=== PATIENT | female | born 1930 | race Caucasian/White ===

== ENCOUNTER → 2018-09-30 | Outpatient (CLI) | payer OTHER ==
[~2018-09-30] MED LIST: ASPIR 8181 MG PO; COZAAR 25 MG TA25 M1 PO; HYDROCHLOROTHIA25 M2 PO; K-DUR 20 MEQ T20 MEQ PO; KLOR-CON 1010 MEQ PO; LIPITOR 20 MG T20 M1 PO; TOPROL XL100 MG PO
--- NOTE | 2018-09-30 14:56 | 2DMMODE ---
[facility] [place] [address] 2 D/M-MODE ECHOCARDIOGRAM Name: CALLUM MARIN Room #: PRE [facility]#: [id number] ������������� Admission: ������������� Attend Phys: Austin Rogel, Discharge: ��� ������������� ��� Date of : 32 Date of Service: 09/30/18 1456 �� Report #: [id number] �������� ��������������������������������������������[id number] THIS REPORT FOR: //name// APPROVED REPORT Study performed: 09/30/2018 14:17:39 EXAM: Comprehensive 2D, Doppler, and color-flow Echocardiogram Patient Location: Out-Patient Status: routine BSA: 1.84 HR: 93 bpm BP: 120/80 mmHg Rhythm: Atrial Fibrillation Other Information Study Quality: Good Indications Congestive Heart Failure Hx: Afib, HTN, HLP. 2D Dimensions RVDd: 33.06 mm IVSd: 13.23 (7-11mm) LVOT Diam: 20.03 (18-24mm) LVDd: 45.33 mm PWd: 13.20 (7-11mm) Ascending Ao: 30.32 (22-36mm) LVDs: 26.32 (25-40mm) Aortic Root: 32.11 mm Volumes Left Atrial Volume (Systole) Single Plane 4CH: 73.58 mL Single Plane 2CH: 72.27 mL LA ESV Index: 41.00 mL/m2 Aortic Valve AoV Peak Gage.: 2.10 m/s AO Peak Gr.: 17.56 mmHg AO Mean Gr.: 10.06 mmHg AO V2 Mean: 1.50 m/s AO V2 VTI: 43.57 cm Mitral Valve MV Decel. Time: 174.77 ms [facility] [email or web address] [address] 2 D/M-MODE ECHOCARDIOGRAM Name: CALLUM MARIN Room #: PRE [facility]#: [id number] ������������� Admission: ������������� Attend Phys: Austin Rogel, Discharge: ��� ������������� ��� Date of : 32 Date of Service: 09/30/18 1456 �� Report #: [id number] �������� ��������������������������������������������[id number] MV E Max Gage.: 1.13 m/s Pulmonary Valve PV Peak Gage.: 0.83 m/s PV Peak Gr.: 2.76 mmHg Tricuspid Valve TR Peak Gage.: 2.61 m/s RAP Estimate: 10.00 mmHg TR Peak Gr.: 27.50 mmHg PA Pressure: 38.00 mmHg Left Ventricle The left ventricle is normal size. There is normal LV segmental wall motion. Mild concentric left ventricular hypertrophy. Left ventricular systolic function is normal. LVEF is 60-65%. This study is not technically sufficient to allow evaluation of the LV diastolic function due to atrial fibrillation. Right Ventricle The right ventricle is normal size. The right ventricular systolic function is normal. Atria Left atrium is moderately dilated. Right atrium is moderately dilated. Aortic Valve Aortic valve is modertely calcified. No aortic regurgitation is present. There is mild valvular aortic stenosis. Calculated aortic valve area is 1.2 cm2 with maximum pressure gradient of 18 mmHg and mean pressure gradient of 10 mmHg. Mitral Valve The mitral valve is normal in structure. Mild mitral annular calcification. Mild mitral regurgitation. No evidence of mitral valve stenosis. Tricuspid Valve The tricuspid valve is normal in structure. Moderate tricuspid regurgitation. Estimated PAP is 35-40mmHg. Pulmonic Valve The pulmonary valve is normal in structure. Mild pulmonic regurgitation. Great Vessels The aortic root is normal in size. The ascending aorta is normal in [facility] [address] [place] [address] 2 D/M-MODE ECHOCARDIOGRAM Name: CALLUM MARIN Haley Room #: [facility]#: [id number] ������������� Admission: ������������� Attend Phys: Austin Rogel, Discharge: ��� ������������� ��� Date of : 32 Date of Service: 09/30/18 1456 �� Report #: [id number] �������� ��������������������������������������������[id number] size. IVC is normal in size and collapses <50% with inspiration. Pericardium There is no pericardial effusion. <Conclusion> The left ventricle is normal size. LVEF is 60-65%. Left atrium is moderately dilated. Right atrium is moderately dilated. The mitral valve is normal in structure. Mild mitral annular calcification. Mild mitral regurgitation. The tricuspid valve is normal in structure. Moderate tricuspid regurgitation. Estimated PAP is 35-40mmHg. The pulmonary valve is normal in structure. Mild pulmonic regurgitation. There is no pericardial effusion. ��������������������������������������������� <ELECTRONICALLY SIGNED> ���������������������������������������� By: Manuel Horton MD ��������������������������������������������� 09/30/18 1456 1456 1456 Manuel Horton MD /INF
== END ==
LOC: CV 11:30
DX: I08.8 Other rheumatic multiple valve diseases (principal); I48.91 Unspecified atrial fibrillation; I10 Essential (primary) hypertension; E78.5 Hyperlipidemia, unspecified

== ENCOUNTER 2019-12-07 11:43 | Emergency (ER) | payer OTHER ==
[~2019-12-07] VITALS: Ht 160 cm; Wt 83.2 kg
[2019-12-07 12:06] LABS: ABSOLUTE NEUTROPHILS 4.1 thou/uL (1.4-8.2); BASOPHILS 0.7 % (0.0-2.0); EOSINOPHILS 0.6 % (0.0-3.0); HEMOGLOBIN 13.2 gm/dL (12.0-15.0); LYMPHOCYTES 20.6 % (24.0-44.0); MCH 32.9 pg (26.0-34.0); MCHC 32.9 g/dL (28.0-37.0); MCV 99.8 fL (80.0-100.0); MONOCYTES 8.1 % (1.0-8.0); PLATELET COUNT 190 thou/uL (150-400); RBC 4.01 mil/uL (4.20-5.00); RDW 14.5 % (10.5-14.5); WBC 5.9 thou/uL (4.0-11.0)
[2019-12-07 12:17] LABS: ANION GAP 8 mmol/L (7-16); BUN 28 mg/dL (7-18); CALCIUM 8.7 mg/dL (8.5-10.1); CHLORIDE 107 mmol/L (98-107); CO2 28 mmol/L (21-32); CREATININE 1.2 mg/dL (0.6-1.0); GLUCOSE 126 mg/dL (74-106); POTASSIUM 3.5 mmol/L (3.5-5.1); SODIUM 143 mmol/L (136-145)
[2019-12-07 12:25] LABS: ALBUMIN 3.3 g/dL (3.4-5.0); SGOT 37 U/L (15-37); SGPT 60 U/L (30-65); TOTAL BILIRUBIN 0.6 mg/dL (0.2-1.0); TOTAL PROTEIN 6.8 g/dL (6.4-8.2); TROPONIN-I <0.06 ng/mL (<0.06)
[2019-12-07 13:22] VITALS: BP 117/77
--- NOTE | 2019-12-08 07:56 | EKG ---
[facility] [place] [address] ELECTROCARDIOGRAM REPORT Name: CALLUM MRAIN [id number] Admission: 12/07/19 Attend Phys: Discharge: 12/07/19 Date of : 32 Report #: [id number] THIS REPORT FOR: cc: Austin Rogel MD, Neal A. MD Lundgren, Craig H. 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[employer]: : 1930 Requested By: Jessie Meredith Order Number: [id number] MD: Zachariah Buchanan Measurements Intervals [place] Rate: 89 P: MS: QRS: -7 QRSD: 86 T: 207 QT: 428 QTc: 521 Interpretive Statements Atrial fibrillation Nonspecific T abnormalities Prolonged QT interval Compared to ECG 12/28/2017 10:48:17 T-wave abnormality now present Prolonged QT interval now present Sinus rhythm no longer present Electronically Signed On 12-08-2019 7:56:03 CDT by Zachariah Buchanan [email or web address] <ELECTRONICALLY SIGNED> By: Zachariah Buchanan MD, [facility] 12/08/19 [id number] Zachariah Buchanan MD, [facility] /EPI
== END 2019-12-07 13:22 | disposition home or self-care (01) ==
LOC: ER 11:43
PROVIDERS: Physician Assistant
DX: R07.89 Other chest pain (principal); I10 Essential (primary) hypertension; E78.5 Hyperlipidemia, unspecified; Z79.82 Long term (current) use of aspirin; Z79.899 Other long term (current) drug therapy; Z88.2 Allergy status to sulfonamides; Z88.0 Allergy status to penicillin

== ENCOUNTER → 2019-12-08 | Outpatient (CLI) | payer OTHER | LOC: SJCVCIMAG 13:38 | PROVIDERS: ATTEND Internal Medicine Cardiovascular Disease | DX: I48.91 Unspecified atrial fibrillation (principal); I10 Essential (primary) hypertension; R60.0 Localized edema; E78.5 Hyperlipidemia, unspecified; Z87.891 Personal history of nicotine dependence; Z79.899 Other long term (current) drug therapy; Z88.0 Allergy status to penicillin; Z88.2 Allergy status to sulfonamides; Z79.01 Long term (current) use of anticoagulants ==

== ENCOUNTER → 2020-01-10 | Outpatient (CLI) | payer OTHER | LOC: SJCVC 13:31 | PROVIDERS: ATTEND Internal Medicine Cardiovascular Disease | DX: R94.31 Abnormal electrocardiogram [ECG] [EKG] (principal); I48.91 Unspecified atrial fibrillation; I10 Essential (primary) hypertension; E78.00 Pure hypercholesterolemia, unspecified; Z79.899 Other long term (current) drug therapy; Z87.891 Personal history of nicotine dependence ==

== ENCOUNTER → 2020-07-03 | Outpatient (CLI) | payer OTHER | LOC: SJCVC 12:38 | PROVIDERS: ATTEND Internal Medicine Cardiovascular Disease | DX: R94.31 Abnormal electrocardiogram [ECG] [EKG] (principal); I48.91 Unspecified atrial fibrillation; R07.9 Chest pain, unspecified; I11.9 Hypertensive heart disease without heart failure; E78.00 Pure hypercholesterolemia, unspecified; R60.0 Localized edema; Z88.0 Allergy status to penicillin; Z88.2 Allergy status to sulfonamides; Z79.899 Other long term (current) drug therapy; Z72.89 Other problems related to lifestyle; Z87.891 Personal history of nicotine dependence; Z90.49 Acquired absence of other specified parts of digestive tract; Z90.710 Acquired absence of both cervix and uterus; Z90.89 Acquired absence of other organs; Z98.890 Other specified postprocedural states ==

== ENCOUNTER → 2020-07-17 | Outpatient (CLI) | payer OTHER | LOC: SJCVC 12:37 | PROVIDERS: ATTEND Internal Medicine Cardiovascular Disease | DX: R60.0 Localized edema (principal); I48.91 Unspecified atrial fibrillation; I10 Essential (primary) hypertension; Z68.33 Body mass index [BMI] 33.0-33.9, adult; Z79.899 Other long term (current) drug therapy ==

== ENCOUNTER → 2020-08-08 | Outpatient (CLI) | payer OTHER | LOC: SJCVCIMAG 08:14 | PROVIDERS: ATTEND Internal Medicine Cardiovascular Disease | DX: R94.31 Abnormal electrocardiogram [ECG] [EKG] (principal); I08.3 Combined rheumatic disorders of mitral, aortic and tricuspid valves; I48.91 Unspecified atrial fibrillation; I11.0 Hypertensive heart disease with heart failure; E78.00 Pure hypercholesterolemia, unspecified; R60.0 Localized edema ==

== ENCOUNTER → 2021-02-08 | Outpatient (CLI) | payer OTHER | LOC: SJCVC 13:05 | PROVIDERS: ATTEND Internal Medicine Cardiovascular Disease | DX: R94.31 Abnormal electrocardiogram [ECG] [EKG] (principal); I48.0 Paroxysmal atrial fibrillation; I10 Essential (primary) hypertension; I35.0 Nonrheumatic aortic (valve) stenosis; E78.5 Hyperlipidemia, unspecified; E78.00 Pure hypercholesterolemia, unspecified; R60.0 Localized edema; Z88.0 Allergy status to penicillin; Z88.2 Allergy status to sulfonamides; Z79.899 Other long term (current) drug therapy; Z72.89 Other problems related to lifestyle; Z87.891 Personal history of nicotine dependence ==